=== PATIENT | male | born 1955 | race Two or more races ===

== ENCOUNTER 2021-05-14 03:58 | Emergency (ER) | payer OTHER ==
[~2021-05-14] VITALS: Ht 172.7 cm; Wt 73.5 kg
[2021-05-14] MEDS ORDERED: GLIPIZIDE XL10 MG (04:11)
[2021-05-14] MEDS ORDERED: LIPITOR80 MG (04:11)
[2021-05-14] MEDS ORDERED: ECOTRIN81 MG (04:12)
[2021-05-14] MEDS ORDERED: TOPROL XL50 M1 (04:12)
[2021-05-14] MEDS ORDERED: TAMS0.4C (04:12)
[2021-05-14] MEDS ORDERED: PLAVIX75 MG (04:12)
[2021-05-14] MEDS ORDERED: TAMS0.4C PO (08:07)
[2021-05-14] MEDS ORDERED: CEFDINIR300 MG PO (08:07)
== END 2021-05-14 08:44 | disposition home or self-care (01) ==
LOC: ER 03:58
DX: R31.0 Gross hematuria (principal); N39.0 Urinary tract infection, site not specified

== ENCOUNTER 2022-07-15 13:40 | Emergency (ER) | payer OTHER ==
[~2022-07-15] VITALS: Ht 170.2 cm; Wt 52.2 kg
[~2022-07-15 13:40] MED LIST: CEFDINIR300 MG PO; ECOTRIN81 MG; GLIPIZIDE XL10 MG; LIPITOR80 MG; PLAVIX75 MG; TAMS0.4C; TAMS0.4C PO; TOPROL XL50 M1
== END 2022-07-15 22:50 | disposition home or self-care (01) ==
LOC: ER 13:40
DX: E86.0 Dehydration (principal); K29.70 Gastritis, unspecified, without bleeding; C68.8 Malignant neoplasm of overlapping sites of urinary organs